=== PATIENT | female | born 1960 | race Two or more races ===

== ENCOUNTER 2019-02-06 23:17 | Emergency (ER) | payer SELFPAY ==
[~2019-02-06] VITALS: Ht 157.5 cm; Wt 59.0 kg
[2019-02-07 03:15] VITALS: BP 156/74
== END 2019-02-07 03:15 | disposition short-term general hospital (02) | DRG 395 ==
LOC: ED 23:17
DX: T18.8XXA Foreign body in other parts of alimentary tract, initial encounter (principal); X58.XXXA Exposure to other specified factors, initial encounter; Y92.009 Unspecified place in unspecified non-institutional (private) residence as the place of occurrence of the external cause